=== PATIENT | male | born 1950 | race American Indian/Alaskan Native ===

== ENCOUNTER 2018-07-01 06:38 | Day surgery (SDC) | payer MEDICARE ==
[2018-07-01] MEDS ORDERED: ECOTRIN PO ONE (07:15)
[2018-07-01 07:41] LABS: Basophils # (Auto) 0.2 K/mm3 (0.0-0.1); Basophils % (Auto) 1.8 % (0.0-1.8); Eosinophils # (Auto) 0.3 K/mm3 (0.0-0.4); Eosinophils % (Auto) 2.9 % (0.0-4.3); Hematocrit 35.8 % (35.5-45.6); Hemoglobin 12.6 gm/dl (11.8-15.2); Lymphocytes # (Auto) 1.4 K/mm3 (1.2-5.4); Lymphocytes % (Auto) 14.9 % (13.4-35.0); Mean Corpuscular HGB Conc 35 % (32-34); Mean Corpuscular Hemoglobin 34 pg (28-32); Mean Corpuscular Volume 97 fl (84-94); Monocytes # (Auto) 0.9 K/mm3 (0.0-0.8); Platelet Count 210 K/mm3 (140-440); Red Cell Distribution Width 12.6 % (13.2-15.2)
[2018-07-01 07:54] LABS: INR 0.94 (0.87-1.13)
[2018-07-01] MEDS ORDERED: NACL 0.9% 500 ML 500 ML IV SCH (08:00)
[2018-07-01 08:07] LABS: BUN/Creatinine Ratio 17; Blood Urea Nitrogen 15 mg/dL (9-20); Calcium 9.8 mg/dL (8.4-10.2); Hemolysis Index 8
[2018-07-01] MEDS ORDERED: HEPARIN 10,000 UNITS/10 ML ONE (09:23)
[2018-07-01] MEDS ORDERED: HEPARIN/NS 5000 UNIT/500ML(CATH LAB) 1,000 ML IR ONE (09:23)
[2018-07-01] MEDS ORDERED: SUBLIMAZE ONE (09:23)
[2018-07-01] MEDS ORDERED: CALAN ONE (09:24)
[2018-07-01] MEDS ORDERED: XYLOCAINE 2% INFILTRATI ONE (09:24)
[2018-07-01] MEDS ORDERED: NITROGLYCERIN SYRINGE 3 ML ONE (09:24)
[2018-07-01] MEDS ORDERED: HumuLIN R SUB-Q ONE ×2 (09:40→11:49)
[2018-07-01] MEDS: VERSED ONE ×2 (10:01→10:08)
[2018-07-01] MEDS ORDERED: CATAPRES PO PRN (11:14)
--- NOTE | 2018-07-01 11:18 | Discharge Summary ---
Short Stay Discharge Plan Activity: advance as tolerated Weight Bearing Status: Full Weight Bearing Diet: low cholesterol, low salt, diabetic Wound: keep clean and dry Special Instructions: no heavy lifting (3 days), hold Metformin (48 hrs) Additional Instructions: HOLD METFORMIN FOR 48 HOURS AFTER CARDIAC CATHETERIZATION. Follow up with: KARLA AMARO MD [Primary Care Provider] - 7 Days MARIA DE JESUS WINSTON MD [Staff Physician] - 7 Days
[2018-07-01] MEDS ORDERED: HumuLIN R ONE (11:42)
[2018-07-01] MEDS ORDERED: NACL 0.9% 1000 ML 1,000 ML IV SCH (12:00)
--- NOTE | 2018-07-01 12:08 | Cardiac Catherization Report ---
REASON FOR PROCEDURE: The patient is a 67-year-old man who is preoperative right hip surgery. A preop thallium stress test was abnormal, prompting a recommendation for cardiac catheterization. PROCEDURE: 1. Left heart catheterization. 2. Selective left and right coronary angiography. 3. Left ventricle angiography. 4. Sedation time, start 10:01, end 10:25. DESCRIPTION OF PROCEDURE: The patient was prepped and draped in a sterile fashion after informed consent. The right radial cath site was prepped and draped after a negative Sony's test. The right radial artery was entered using Seldinger technique followed by placement of a 6-Welsh hydrophilic sheath. Routine radial cocktail was administered via the sheath. Left coronary angiography was performed using a #3.5 left Nubia catheter. A #4 right Nubia was used for right coronary angiography. A pigtail catheter was used for left ventricle angiography. The catheters were removed, sheath removed, and hemostasis achieved using a TR band. The patient was returned to the postprocedure unit in stable condition. There were no complications. FINDINGS: HEMODYNAMICS: Left ventricular end-diastolic pressure was 17, following coronary angiography. Ascending aortic pressure was 156/77. There was no significant pressure gradient on pullback across the aortic valve. CORONARY ANGIOGRAPHY: The left main coronary artery was angiographically normal. The left anterior descending artery contained mild luminal narrowing of its mid segment, there was mild irregularities, up to 20% luminal stenosis of the mid LAD. The circumflex artery and its obtuse marginal branches contained mild luminal irregularities. The right coronary artery was dominant. This vessel 30-40% stenosis of its proximal segment followed by mild luminal irregularities of the mid segment. There was normal left ventricular systolic function with ejection fraction of 60%. CONCLUSION: 1. Mild nonobstructive irregularities as above. 2. Normal left ventricular systolic function, ejection fraction 60%. RECOMMENDATION: Risk factor modification and medical therapy. JOB# [id number] CA/NTS
[2018-07-01] MEDS ORDERED: TYLENOL PO ONE (13:07)
[2018-07-01 13:58] VITALS: BP 181/86
== END 2018-07-01 06:39 | disposition home or self-care (01) ==
LOC: CATHLABREC 06:38
PROVIDERS: ATTEND Internal Medicine Cardiovascular Disease
DX: I25.10 Atherosclerotic heart disease of native coronary artery without angina pectoris (principal); I10 Essential (primary) hypertension; J44.9 Chronic obstructive pulmonary disease, unspecified; K21.9 Gastro-esophageal reflux disease without esophagitis; M19.90 Unspecified osteoarthritis, unspecified site; F32.9 Major depressive disorder, single episode, unspecified; H40.9 Unspecified glaucoma; E78.00 Pure hypercholesterolemia, unspecified; Z87.891 Personal history of nicotine dependence; Z79.899 Other long term (current) drug therapy; Z79.82 Long term (current) use of aspirin; Z79.4 Long term (current) use of insulin; Z98.890 Other specified postprocedural states; Z98.42 Cataract extraction status, left eye; Z98.41 Cataract extraction status, right eye; Z83.3 Family history of diabetes mellitus; Z82.61 Family history of arthritis; Z83.49 Family history of other endocrine, nutritional and metabolic diseases; Z79.01 Long term (current) use of anticoagulants
CPT/HCPCS: 36415; 80048; 82962; 85025; 85610; 85730; 93005; 93010; 93458; 96372; 99156; 99157; C1894; J1644; J2250; J3010; J7030; J7040; J1815; Q9967